=== PATIENT | male | born 1995 | race African-American/Black ===

== ENCOUNTER 2023-09-11 14:09 | Emergency (ER) | payer OTHER, SELFPAY ==
[2023-09-11 14:28] VITALS: BP 127/71; PULSE 67; RESP 18; TEMP 36.3; O2SAT 100
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
[2023-09-11 15:56] VITALS: BP 122/86; PULSE 72; RESP 17; O2SAT 99
== END 2023-09-11 15:57 | disposition home or self-care (01) ==
PROVIDERS: Emergency Provider Emergency Medicine
DX: S13.4XXA Sprain of ligaments of cervical spine, initial encounter (principal); T14.8XXA Other injury of unspecified body region, initial encounter; V89.2XXA Person injured in unspecified motor-vehicle accident, traffic, initial encounter; W22.10XA Striking against or struck by unspecified automobile airbag, initial encounter
CPT/HCPCS: 99283